=== PATIENT | male | born 1955 | race Caucasian/White ===

== ENCOUNTER → 2022-03-08 | Outpatient (CLI) | payer OTHER ==
[2022-03-09 09:44] LABS: Stool Occult Bld Immuno 1 Negative (NEGATIVE)
== END | disposition home or self-care (01) ==
LOC: LAB SHORT 13:58 → LAB 13:58
PROVIDERS: Physician Assistant
DX: Z12.11 Encounter for screening for malignant neoplasm of colon (principal)
CPT/HCPCS: G0328

== ENCOUNTER 2023-04-15 08:44 | Emergency (ER) | payer MEDICARE, OTHER ==
[~2023-04-15] VITALS: Ht 172.7 cm; Wt 99.8 kg
[2023-04-15 08:57] VITALS: BP 175/96
[2023-04-15] MEDS ORDERED: Ultram50 MG PO (09:01)
== END 2023-04-15 09:07 | disposition home or self-care (01) ==
LOC: ER 08:44
DX: G89.29 Other chronic pain (principal); M25.512 Pain in left shoulder; I10 Essential (primary) hypertension
CPT/HCPCS: 99283

== ENCOUNTER → 2024-06-18 | Outpatient (CLI) | payer MEDICARE, OTHER ==
[~2024-06-18] MED LIST: Ultram50 MG PO
[2024-06-19 10:34] LABS: Stool Occult Bld Immuno 1 Negative (NEGATIVE)
== END ==
LOC: LAB SHORT 09:00 → LAB 09:00
PROVIDERS: Family Medicine
DX: Z12.11 Encounter for screening for malignant neoplasm of colon (principal)
CPT/HCPCS: G0328

== ENCOUNTER 2025-05-29 10:07 | Day surgery (SDC) | payer OTHER ==
[2025-05-29] VITALS (10 sets, daily range): BP systolic 151–186; BP diastolic 69–133
[~2025-05-29] VITALS: Ht 175.3 cm; Wt 99.3 kg
[~2025-05-29 10:07] MED LIST changes: +ASPI81CH PO; +ATOR40TA PO; +EZET10 PO; +FELODIPINE ER10 MG PO; +HYDR10 PO; +IRBE150 PO; +Isosorbide Mono30 MG PO; +METO25ER PO; +NITR.4SL SL; +OMEPRAZOLE MAGN20 MG PO
[2025-05-29] MEDS ORDERED: FARXIGA10 MG PO (10:29)
[2025-05-29] MEDS ORDERED: Verapamil HCL 2.5 MG/ML 2ML Injection ONE (10:55)
[2025-05-29] MEDS ORDERED: NS 250 ML IV ONE (10:55)
[2025-05-29] MEDS ORDERED: NS 1,000 ML IV ONE (10:55)
[2025-05-29] MEDS ORDERED: Heparin Sodium 1000 Units/ML 10ML MDV ONE (10:55)
[2025-05-29] MEDS ORDERED: NS 500 ML IV ONE (10:55)
[2025-05-29] MEDS ORDERED: DiphenhydrAMINE HCl 50 MG/ML 1ML Vial ONE (10:55)
[2025-05-29] MEDS ORDERED: Nitroglycerin 2 MG/20 ML BTL ONE (10:56)
[2025-05-29] MEDS ORDERED: FentaNYL Citrate 50 MCG/ML 2 ML Injection ONE (11:31)
[2025-05-29] MEDS ORDERED: Midazolam HCl 1MG / ML 2ML Vial ONE (11:32)
--- NOTE | 2025-05-29 12:00 | NUR ---
2CC AIR REMOVED FROM TR BAND. SITE SOFT AND NON-TENDER PER PT. BRACHIAL SITE SOFT AND NON-TENDER PER PT. NO BLEEDING/HEMATOMA NOTED AT EITHER SITE
--- NOTE | 2025-05-29 12:19 | NUR ---
DR TEE AT BEDSIDE DSICUSSING PROCEDURE AND FUTURE PLAN OF CARE.
--- NOTE | 2025-05-29 12:56 | NUR ---
radial site soft and non-tender per pt. no bleeding/hematoma noted.
--- NOTE | 2025-05-29 13:03 | NUR ---
2cc removed from tr band. site soft and non-tender per pt. no bleeding/hematoma noted.
--- NOTE | 2025-05-29 13:16 | NUR ---
2cc remoed from tr band. site soft and non-tender per pt. no bleeding/hematoma noted.
--- NOTE | 2025-05-29 13:31 | NUR ---
pt ambulated to restroom w/o assistance and denied any complaints. repeat v/s show bp increase to 123/58. dr shaw ok to dc pt.
--- NOTE | 2025-05-29 13:32 | NUR ---
pt given dc instructions and verbalized understanding. iv out. pt changed and taken to [facility] via [facility]. brendan to tkae pt home. radial site soft and non-tender per pt. no bleeding/hematome noted. cloth dot, arm board and sling applied.
--- NOTE | 2025-05-29 13:33 | NUR ---
brachial site soft and non-tender per pt. no bleeding/hematoma noted.
--- NOTE | 2025-05-29 13:41 | NUR ---
TR BAND FULLY DEFLATED. SITE SOFT AND NON-TENDER PER PT. NO BLEEDING/HEMATOMA NOTED.
--- NOTE | 2025-05-29 14:04 | NUR ---
PT DISCHARGE INSTRUCTIONS REVIEWED IN DETAIL. PT. VERBALIZED UNDERSTANDING. LAB ORDERS FOR PT PROVIDED. PT. TR BAND SITE REMAINS UNCHANGED, NO OOZING OR SWELLING AT THIS TIME. IV REMOVED. PT. ABLE TO GET SELF DRESSED WITH OUT DIFFICULTY. TR BAND REMOVED AND BANDAGE PLACED. VSS UPON DISCHARGE. PT FRIEND TO DRIVE PT HOME. TAKEN TO EXIT WITH BELONGINGS VIA WHEELCHAIR.
== END 2025-05-29 14:38 | disposition home or self-care (01) ==
LOC: MHTC 10:07
DX: I25.118 Atherosclerotic heart disease of native coronary artery with other forms of angina pectoris (principal); E78.00 Pure hypercholesterolemia, unspecified; R94.39 Abnormal result of other cardiovascular function study; I12.9 Hypertensive chronic kidney disease with stage 1 through stage 4 chronic kidney disease, or unspecified chronic kidney disease; E11.22 Type 2 diabetes mellitus with diabetic chronic kidney disease; N18.4 Chronic kidney disease, stage 4 (severe); Z79.82 Long term (current) use of aspirin; Z79.899 Other long term (current) drug therapy; Z91.030 Bee allergy status; Z88.5 Allergy status to narcotic agent; Z88.0 Allergy status to penicillin; Z91.013 Allergy to seafood
CPT/HCPCS: 76937; 93454; 99152; C1769; C1887; C1894; J1200; J1644; J1720; J2250; J3010; J7030; J7040; J7050; Q9967

== ENCOUNTER → 2025-07-01 | Outpatient (CLI) | payer OTHER ==
[~2025-07-01] MED LIST changes: +FARXIGA10 MG PO
[2025-07-01 15:47] LABS: Microalbumin, Urine Quant. 129.0 mg/L (0.000-20.000); Protein, Urine Quantitative 26.9 mg/dL (0.0-11.9)
[2025-07-05 14:03] LABS: ALBUMIN %,URINE 89.3 %; ALPHA-1 %,URINE 2.4 %; ALPHA-2 %,URINE 0.1 %; BETA GLOBULIN %,URINE 0.7 %; GAMMA GLOBULIN %,URINE 7.5 %; HOURS COLLECTED 24 hr; PARAPROTEIN %,URINE 0.0 %; PARAPROTEIN EXCRETION/24 HOUR 0.0
== END | disposition home or self-care (01) ==
LOC: LAB 05:50 → LAB SHORT 05:50 → LAB FUT 06-18 15:35
PROVIDERS: Internal Medicine Nephrology
DX: N18.30 Chronic kidney disease, stage 3 unspecified (principal); D63.1 Anemia in chronic kidney disease; N25.81 Secondary hyperparathyroidism of renal origin; E55.9 Vitamin D deficiency, unspecified; E78.00 Pure hypercholesterolemia, unspecified; D51.8 Other vitamin B12 deficiency anemias; D52.8 Other folate deficiency anemias; R76.9 Abnormal immunological finding in serum, unspecified; R94.5 Abnormal results of liver function studies; R94.6 Abnormal results of thyroid function studies
CPT/HCPCS: 81050; 82043; 82570; 84156; 84166; 86335

== ENCOUNTER → 2025-08-16 | Outpatient (CLI) | payer OTHER ==
[2025-08-16 11:59] LABS: Microalbumin, Urine Quant. 232.0 mg/L (0.000-20.000); Protein, Urine Quantitative 53.7 mg/dL (0.0-11.9)
== END ==
LOC: LAB FUT 08-08 15:45 → LAB SHORT 10:13 → LAB 10:13
PROVIDERS: Internal Medicine Nephrology
DX: N18.30 Chronic kidney disease, stage 3 unspecified (principal); D63.1 Anemia in chronic kidney disease; N25.81 Secondary hyperparathyroidism of renal origin; E55.9 Vitamin D deficiency, unspecified; E78.00 Pure hypercholesterolemia, unspecified; N40.1 Benign prostatic hyperplasia with lower urinary tract symptoms; R76.9 Abnormal immunological finding in serum, unspecified; R94.5 Abnormal results of liver function studies; R94.6 Abnormal results of thyroid function studies
CPT/HCPCS: 81050; 82043; 82570; 84156

== ENCOUNTER → 2025-10-28 | Outpatient (CLI) | payer OTHER ==
[2025-10-28 11:24] LABS: Protein, Urine Quantitative 632.2 mg/dL (0.0-11.9)
== END | disposition home or self-care (01) ==
LOC: LAB SHORT 09:08 → LAB 09:08
PROVIDERS: Internal Medicine Nephrology
DX: N18.2 Chronic kidney disease, stage 2 (mild) (principal); D63.1 Anemia in chronic kidney disease; N25.81 Secondary hyperparathyroidism of renal origin; E29.1 Testicular hypofunction; E55.9 Vitamin D deficiency, unspecified; G60.9 Hereditary and idiopathic neuropathy, unspecified; R76.9 Abnormal immunological finding in serum, unspecified; R84.5 Abnormal microbiological findings in specimens from respiratory organs and thorax
CPT/HCPCS: 82043; 82570; 84156